=== PATIENT | male | born 1945 | race Caucasian/White ===

== ENCOUNTER 2025-03-06 14:58 | Outpatient (CLI) | payer MEDICARE | END 2025-03-06 14:59 | disposition home or self-care (01) | LOC: ULT 14:58 | PROVIDERS: ATTEND Family Medicine | DX: R35.0 Frequency of micturition (principal) | CPT/HCPCS: 76770 ==

== ENCOUNTER 2025-07-16 10:06 | Outpatient (CLI) | payer MEDICARE | END 2025-07-16 10:07 | disposition home or self-care (01) | LOC: SCSMRI 10:06 | PROVIDERS: ATTEND Family Medicine | DX: R41.3 Other amnesia (principal); R90.82 White matter disease, unspecified | CPT/HCPCS: 70551 ==